=== PATIENT | female | born 1995 | race Caucasian/White ===

== ENCOUNTER 2019-09-19 12:12 | Outpatient (CLI) | payer SELFPAY ==
--- NOTE | 2019-09-19 12:20 | XR_ITS ---
WS: [id number] XR sacrum coccyx min 2V [id number] REASON FOR EXAM: coccyx pain FINDINGS: Sacroiliac joints are normal. The sacrum and coccyx show no fractures or dislocation. The overall alignment of the sacrum and coccyx are normal. XR/XR sacrum coccyx min 2V [id number] IMPRESSION: Sacroiliac joints normal Normal sacrum and coccyx.
--- NOTE | 2019-09-19 12:20 | XR_ITS ---
WS: [id number] XR thoracic spine 2V [id number] REASON FOR EXAM: thoracic back pain FINDINGS: Loss of the disc space T5-T6, T6-T7 consistent with degenerated disc changes. The lamina, pedicle, spinous processes are normal. The cervicothoracic junction was normal. XR/XR thoracic spine 2V [id number] IMPRESSION: Degenerated disc changes T5-T6, T6-T7.
--- NOTE | 2019-09-19 12:20 | XR_ITS ---
WS: [id number] XR lumbar spine 2-3V* [id number] REASON FOR EXAM: lumbosacral pain FINDINGS: The disc spaces and vertebral body heights are all normal. No evidence of spondylolysis or spondylolisthesis. No fractures of the lumbar spine. Sacrum and coccyx appear to be normal. XR/XR lumbar spine 2-3V* [id number] IMPRESSION: Normal lumbar spine series.
== END 2019-09-19 12:13 | disposition home or self-care (01) ==
PROVIDERS: PCP Nurse Practitioner Family; Visit Provider Nurse Practitioner Family
DX: M53.3 Sacrococcygeal disorders, not elsewhere classified (principal); M54.6 Pain in thoracic spine; M54.5 Low back pain
CPT/HCPCS: 72070; 72100; 72220